=== PATIENT | female | born 1955 | race Caucasian/White ===

== ENCOUNTER → 2016-04-03 | Outpatient (CLI) | payer OTHER ==
--- NOTE | 2016-04-03 17:36 | MA ---
Screening Digital Mammogram With iCAD Analysis Clinical Indications: Routine screening. Technique: Standard cephalocaudal and mediolateral oblique projections were obtained. This examinatio n was processed by the iCAD computer aided detection system. Comparison: February 2015, January 2014, December 2011, March 2007. Breast density: Type B; Scattered fibroglandular densities. Findings: CAD was reviewed. No masses, suspicious calcifications or other signs of malignancy are id entified. There has been no significant change in the appearance of either breast. Impression: Negative mammogram. BI-RADS 1. Recommendation: Routine mammographic screening in one year. [facility] will send a result letter to the patient. Negative mammography should not preclude additional workup of a clinically suspicious finding. The patient's information is entered into a reminder system with a target due date for her next mammo gram.
== END ==
LOC: FIMAGING 15:44
DX: Z12.31 Encounter for screening mammogram for malignant neoplasm of breast (principal)
CPT/HCPCS: G0202

== ENCOUNTER 2016-06-27 17:18 | Emergency (ER) | payer OTHER ==
[2016-06-27] MEDS ORDERED: ONDANSETRON 4 MG/2 ML VIAL IVP ONE (17:49)
[2016-06-27] MEDS ORDERED: fentaNYL 100 MCG/2 ML INJ IVP ONE (17:49)
[2016-06-27] MEDS ORDERED: NS 1,000 ML IV ONE ×2 (17:49)
--- NOTE | 2016-06-27 17:51 | EDPHY ---
H & P Time Seen by Provider: 06/27/16 17:39 HPI/ROS: CHIEF COMPLAINT: Vomiting and abdominal pain HISTORY OF PRESENT ILLNESS: This 61-year-old woman started having symptoms today after lunch around 12:00 p.m.. She had some pizza which was left over from last night at her workplace. Of note she also had some symptoms similar to this on Saturday which resolved sooner and more spontaneously. Started having nausea followed by multiple episodes of vomiting and some diffuse lower abdominal cramping. No diarrhea. No chest pain. No fevers or chills and no urinary symptoms. Pain does not radiate. Symptoms are moderate to severe. REVIEW OF SYSTEMS: Eye: no change in vision ENT: no sore throat Cardiac: no chest pain or syncope Pulmonary: no cough or SOB Abdomen: HPI Musculoskeletal: no back pain Skin: no rash Neuro: no headache Constitutional: no fever : no urinary symptoms A comprehensive 10 point review of systems is otherwise negative aside from elements mentioned in the history of present illness. PAST MEDICAL HISTORY: Negative Social history: Does use alcohol and marijuana General Appearance: Alert and conversant, cooperative. Appears uncomfortable. Eyes: No scleral icterus. ENT, Mouth: Dry mucous membranes Respiratory: Normal respiratory effort, breath sounds equal, lungs are clear to auscultation. Cardiovascular: Regular rate and rhythm. Gastrointestinal: Bilateral lower abdominal tenderness without rebound or guarding. Neurological: Alert and oriented x3. Normally conversant. Face symmetric, normal movement and sensation in all extremities. Skin: Warm and dry, no rashes. Musculoskeletal: No peripheral edema and no joint swelling. Psychiatric: Not agitated. Emergency Department course/MDM: Initial treatment includes Zofran 4 mg IV and 2 L IV normal saline for nausea vomiting and dehydration. Labs to include LFTs and electrolytes. 183: Labs reviewed including negative LFTs and lipase. 1905: Feels much better, smiling, thirsty, taking oral fluids, abdomen soft and nontender. Smoking Status: Former smoker Constitutional: Initial Vital Signs Temperature (C) 36.3 C 06/27/16 17:23 Heart Rate 65 06/27/16 17:23 Respiratory Rate 17 06/27/16 17:23 Blood Pressure 136/76 H 06/27/16 17:23 O2 Sat (%) 99 06/27/16 17:23 O2 Delivery Mode Room Air Allergies/Adverse Reactions: No Known Allergies Allergy (Verified 06/27/16 17:23) Home Medications: Medication Instructions Recorded Atorvastatin Calcium [Lipitor 10 10 mg PO DAILY 09/25/11 mg (RX)] Levothyroxine [Synthroid 25 mcg 25 mcg PO DAILY06 09/25/11 (RX)] Medical Decision Making Differential Diagnosis: Differential diagnosis considered for nausea and vomiting including but not limited to gastroenteritis, gastritis, appendicitis, and medication side effect. - Data Points Laboratory Results: Laboratory Results 06/27/16 17:55 06/27/16 17:55 06/27/16 06/27/16 17:55 17:55 WBC 6.57 10^3/uL 10^3/uL (3.80-9.50) RBC 4.36 10^6/uL 10^6/uL (4.18-5.33) Hgb 14.3 g/dL g/dL (12.6-16.3) Hct 40.8 % % (38.0-47.0) MCV 93.6 fL fL (81.5-99.8) MCH 32.8 pg pg (27.9-34.1) MCHC 35.0 g/dL g/dL (32.4-36.7) RDW 11.7 % % (11.5-15.2) Plt Count 273 10^3/uL 10^3/uL (150-400) MPV 9.9 fL fL (8.7-11.7) Neut % (Auto) 77.3 % H % (39.3-74.2) Lymph % (Auto) 18.1 % % (15.0-45.0) [place] % (Auto) 3.5 % L % (4.5-13.0) Eos % (Auto) 0.2 % L % (0.6-7.6) Baso % (Auto) 0.6 % % (0.3-1.7) Nucleat RBC Rel Count 0.0 % % (0.0-0.2) Absolute Neuts (auto) 5.08 10^3/uL 10^3/uL (1.70-6.50) Absolute Lymphs (auto) 1.19 10^3/uL 10^3/uL (1.00-3.00) Absolute Monos (auto) 0.23 10^3/uL L 10^3/uL (0.30-0.80) Absolute Eos (auto) 0.01 10^3/uL L 10^3/uL (0.03-0.40) Absolute Basos (auto) 0.04 10^3/uL 10^3/uL (0.02-0.10) Absolute Nucleated RBC 0.00 10^3/uL 10^3/uL (0-0.01) Immature Gran % 0.3 % % (0.0-1.1) Immature Gran # 0.02 10^3/uL 10^3/uL (0.00-0.10) Sodium 139 mEq/L mEq/L (134-144) Potassium 3.2 mEq/L L mEq/L (3.5-5.2) Chloride 101 mEq/L mEq/L (97-110) Carbon Dioxide 25 mEq/l mEq/l (22-31) Anion Gap 13 mEq/L mEq/L (8-16) BUN 22 mg/dL mg/dL (7-23) Creatinine 0.6 mg/dL mg/dL (0.6-1.0) Estimated GFR > 60 Glucose 114 mg/dL H mg/dL (70-100) Calcium 10.0 mg/dL mg/dL (8.5-10.4) Total Bilirubin 1.0 mg/dL mg/dL (0.1-1.4) Conjugated Bilirubin 0.3 mg/dL mg/dL (0.0-0.5) Unconjugated Bilirubin 0.7 mg/dL mg/dL (0.0-1.1) AST 29 IU/L IU/L (14-46) ALT 43 IU/L IU/L (9-52) Alkaline Phosphatase 89 IU/L IU/L (38-126) Total Protein 7.8 g/dL g/dL (6.3-8.2) Albumin 4.6 g/dL g/dL (3.5-5.0) Lipase 59.0 IU/L IU/L (23-300) Medications Given: Discontinued Medications Fentanyl (Sublimaze) 100 mcg IVP EDNOW ONE Stop: 06/27/16 17:50 Last Admin: 06/27/16 18:08 Dose: 100 mcg Sodium Chloride (Ns) 1,000 mls @ 0 mls/hr IV ONCE ONE PRN Reason: Wide Open Stop: 06/27/16 17:50 Last Admin: 06/27/16 18:08 Dose: 1,000 mls Sodium Chloride (Ns) 1,000 mls @ 0 mls/hr IV ONCE ONE PRN Reason: Wide Open Stop: 06/27/16 17:50 Last Admin: 06/27/16 18:08 Dose: 1,000 mls Ondansetron HCl (Zofran) 4 mg IVP EDNOW ONE Stop: 06/27/16 17:50 Last Admin: 06/27/16 18:08 Dose: 4 mg Departure - Departure Disposition: [facility] Clinical Impression: Nausea & vomiting Qualifiers: Vomiting type: unspecified Vomiting Intractability: non-intractable Qualified Code(s): R11.2 - Nausea with vomiting, unspecified Condition: Good Instructions: Acute Nausea and Vomiting (ED) Referrals: Malaika Chandler MD [Primary Care Provider] - As per Instructions
[2016-06-27 18:09] LABS: % IMMATURE GRANULYOCYTES 0.3 % (0.0-1.1); ABSOLUTE IMMATURE GRANULOCYTES 0.02 10^3/uL (0.00-0.10); ADD DIFF? NO; ADD MORPH? NO; ADD SCAN? NO; ATYPICAL LYMPHOCYTE FLAG 0 (0-99); FRAGMENT RBC FLAG 0 (0-99); HEMATOCRIT 40.8 % (38.0-47.0); HEMOGLOBIN 14.3 g/dL (12.6-16.3); LEFT SHIFT FLG 0 (0-99); LIPEMIA HEMOLYSIS FLAG 90 (0-99); MEAN CELL HEMOGLOBIN 32.8 pg (27.9-34.1); MEAN CELL VOLUME 93.6 fL (81.5-99.8); MEAN PLATELET VOLUME 9.9 fL (8.7-11.7); PLATELET CLUMPS FLAG 0 (0-99); PLATELET COUNT 273 10^3/uL (150-400); RED BLOOD CELL COUNT 4.36 10^6/uL (4.18-5.33); RED CELL DISTRIBUTION WIDTH 11.7 % (11.5-15.2)
[2016-06-27 18:26] VITALS: RESP 16
[2016-06-27 18:33] LABS: ALANINE AMINOTRANSFERASE 43 IU/L (9-52); ALBUMIN 4.6 g/dL (3.5-5.0); ALKALINE PHOSPHATASE 89 IU/L (38-126); ANION GAP 13 mEq/L (8-16); ASPARTATE AMINOTRANSFERASE 29 IU/L (14-46); BILIRUBIN-CONJUGATED 0.3 mg/dL (0.0-0.5); BILIRUBIN-UNCONJUGATED 0.7 mg/dL (0.0-1.1); CARBON DIOXIDE 25 mEq/l (22-31); CHLORIDE 101 mEq/L (97-110); CREATININE 0.6 mg/dL (0.6-1.0); GLOMERULAR FILTRATION RATE > 60; GLUCOSE 114 mg/dL (70-100); POTASSIUM 3.2 mEq/L (3.5-5.2); SODIUM 139 mEq/L (134-144); TOTAL PROTEIN 7.8 g/dL (6.3-8.2)
[2016-06-27 19:14] VITALS: BP 112/59; PULSE 69; TEMP 97.5; O2SAT 95
== END 2016-06-27 19:14 | disposition home or self-care (01) ==
DX: R11.2 Nausea with vomiting, unspecified (principal); R10.30 Lower abdominal pain, unspecified; E86.0 Dehydration
CPT/HCPCS: 96374; J2405; J3010

== ENCOUNTER 2016-09-03 10:06 | Day surgery (SDC) | payer OTHER ==
[2016-09-03] MEDS ORDERED: LR 1,000 ML IV ONE (10:30)
[2016-09-03 10:40] VITALS: PULSE 74
--- NOTE | 2016-09-03 11:37 | PDANEPAE ---
ANE History of Present Illness colonoscopy ANE Past Medical History - Cardiovascular History Hx Hypertension: No Hx Arrhythmias: No Hx Chest Pain: No Hx Coronary Artery / Peripheral Vascular Disease: No Hx CHF / Valvular Disease: No Hx Palpitations: No - Pulmonary History Hx COPD: No Hx Asthma/Reactive Airway Disease: No Hx Recent Upper Respiratory Infection: No Hx Oxygen in Use at Home: No Hx Sleep Apnea: No Sleep Apnea Screening Result - Last Documented: Negative - Neurologic History Hx Cerebrovascular Accident: No Hx Seizures: No Hx Dementia: No - Endocrine History Hx Diabetes: No Endocrine History Comment: HYPOTHYROID - Renal History Hx Renal Disorders: No - Liver History Hx Hepatic Disorders: No - Neurological & Psychiatric Hx Hx Neurological and Psychiatric Disorders: No - Cancer History Hx Cancer: No - Congenital Disorder History Hx Congenital Disorders: No - GI History Hx Gastrointestinal Disorders: Yes Gastrointestinal History Comment: HX OF COLON POLYPS - Other Health History Other Health History: on medical marijuana for eye condtition - Chronic Pain History Chronic Pain: No - Surgical History Prior Surgeries: COLONOSCOPY REMVL POLYPS. ECTOPIC PREG. RT FOOT ANE Review of Systems - Exercise capacity METS (RN): 4 METS ANE Patient History - Allergies Allergies/Adverse Reactions: No Known Allergies Allergy (Verified 06/27/16 17:23) - Home Medications Home Medications: Atorvastatin Calcium [Lipitor 10 mg (RX)] 10 mg PO DAILY 09/25/11 [Last Taken ] Levothyroxine [Synthroid 25 mcg (RX)] 25 mcg PO DAILY06 09/25/11 [Last Taken 24/02] - NPO status NPO Since - Liquids (Date): 09/02/16 NPO Since - Liquids (Time): 23:00 NPO Since - Solids (Date): 09/02/16 NPO Since - Solids (Time): 07:30 - Anes Hx Anes Hx: no prior problems - Smoking Hx Smoking Status: Former smoker ANE Labs/Vital Signs - Vital Signs Blood Pressure: 95/65 Heart Rate: 74 Respiratory Rate: 13 O2 Sat (%): 100 Height: 157.48 cm Weight: 49.895 kg ANE Physical Exam - Airway Mallampati Score: Class 2 Mouth exam: normal dental/mouth exam - Pulmonary Pulmonary: no respiratory distress - Cardiovascular Cardiovascular: regular rate and rhythym - ASA Status ASA Status: II ANE Anesthesia Plan Anesthesia Plan: GA with mask, MAC
[2016-09-03] MEDS ORDERED: PROPOFOL/EMULSION 500 MG/50 ML BOTTLE IV ONE (11:41)
[2016-09-03] MEDS ORDERED: MIDAZOLAM 2 MG/2 ML VIAL ONE (11:41)
[2016-09-03] MEDS ORDERED: LIDOCAINE 2% 5 ML SDV ONE (11:41)
[2016-09-03] MEDS ORDERED: fentaNYL 100 MCG/2 ML INJ ONE (12:13)
--- NOTE | 2016-09-03 12:49 | PDGENHP ---
History & Physical Chief Complaint: transverse colon polyp History of Present Illness: 61 year old female withx hx of complex tc polyp presents for surveillance colonoscopy. Pertinent Past, Social, Family History: PMHx: hypothyroid. SoHx: No cig. FaMHx : + polyps Relevant Physical Exam: HEENT: Anicteric. Cv: RRR +s1s2. lungs: CTAB no w/r/ r. Abd: soft, nt, nd, +BS Cardiorespiratory Assessment: ASA 2
[2016-09-03] MEDS ORDERED: ONDANSETRON 4 MG/2 ML VIAL IVP PRN (13:02)
[2016-09-03] MEDS ORDERED: fentaNYL 100 MCG/2 ML INJ IVP PRN (13:02)
[2016-09-03] MEDS ORDERED: LR 500 ML IV PRN (13:02)
[2016-09-03] MEDS ORDERED: HYDROmorphONE/DILAUDID 1 MG/ML SYR IVP PRN (13:02)
[2016-09-03] MEDS ORDERED: MEPERIDINE 25 MG/ML SYR IVP PRN (13:02)
[2016-09-03] MEDS ORDERED: NALOXONE HCL 0.4 MG/ML INJ IVP PRN (13:02)
--- NOTE | 2016-09-03 13:10 | POSTOPPROG ---
Post Op Note Date of Operation: 09/03/16 Surgeon: Flako Garnica Anesthesia: IV Sedation Pre-op Diagnosis: colonic polyp Post-op Diagnosis: tranverse colon polyp Indication: polyp Procedure: colonoscopy with snare Findings: + t.c polpy Inf/Abcess present in the surg proc area at time of surgery?: No
--- NOTE | 2016-09-03 13:13 | POSTANESTH ---
Post Anesthetic Evaluation Cardiovascular Status: Normal, Stable Respiratory Status: Normal, Stable Level of Consciousness/Mental Status: Can Participate in Eval Pain Control: Adequate, Prn Tx Ordered Nausea/Vomiting Control: Adequate, Prn Tx Ordered Complications Possibly Related to Anesthesia: None Noted
[2016-09-03 13:22] VITALS: TEMP 98.1
[2016-09-03 14:25] VITALS: BP 97/54; RESP 13; O2SAT 94
--- NOTE | 2016-09-03 16:50 | GPN ---
[f rep st] PROCEDURE NOTE DATE OF PROCEDURE: 09/03/2016 PROCEDURE: Colonoscopy with snare polypectomy, APC, placement of a clip. INDICATION: The patient is a 61-year-old female who presents for surveillance of a complex carpet p olyp in the transverse colon. She had an endoscopic mucosal resection performed approximately a yea r ago and presents for surveillance colonoscopy. CONSENT: Risks, benefits, and alternatives of the procedure were discussed in great detail with the patient. Risks of infection, bleeding, perforation, sedation were discussed. All questions answer ed. Informed consent obtained. MEDICATIONS: Propofol. Please see anesthesiology for details. ESTIMATED BLOOD LOSS: Insignificant. COLONOSCOPIC EVALUATION: On rectal exam, no palpable masses felt. The scope was introduced in the rectum and advanced to the cecum, where the ileocecal valve and appendiceal orifice were seen. The quality of prep was fair. In the transverse colon, a tattoo mónica was seen, and just proximal to this area 2 polypoid lesions w ere seen of approximately 4 and 5 mm each. The area in between these lesions had normal intervening mucosa. Using a hot snare polypectomy, these lesions were both resected. APC was applied around the edges a nd 1 Resolution Clip was placed. IMPRESSION: Complex polyp in the ascending colon, status post removal. RECOMMENDATION: Follow up on biopsy results. Repeat colonoscopy in 1 year. /[id number]/MODL
== END 2016-09-03 14:30 | disposition home or self-care (01) ==
LOC: FSGY 10:06
PROVIDERS: ATTEND Internal Medicine Gastroenterology
PROC: 0DBE8ZX Excision of Large Intestine, Via Natural or Artificial Opening Endoscopic, Diagnostic (ICD-10-PCS; principal; 2016-09-03 11:45)
DX: E03.9 Hypothyroidism, unspecified (principal); Z87.891 Personal history of nicotine dependence
CPT/HCPCS: J2250; J2704; J3010

== ENCOUNTER 2017-04-07 11:20 | Emergency (ER) | payer OTHER ==
[2017-04-07 12:00] VITALS: BP 121/91; PULSE 90; RESP 16; TEMP 98.6; O2SAT 97
--- NOTE | 2017-04-07 15:03 | EDPHY ---
H & P HPI/ROS: Chief complaint: Splinter in right leg History of present illness: This is a 61-year-old female who presents to the emergency department concerned she still has a splinter in her right leg. She states last summer she struck her leg against a stick and a stick got stuck in her leg. She removed it. However she is not sure if she fully removed the stick. She started to notice a wound to her right leg in the same region over the last few days and is concerned there was a retained stick that is coming out of her leg. Smoking Status: Former smoker Physical Exam: General: Alert, nontoxic Skin: There is an abrasion to the the lateral aspect of the right lower leg. No pustular discharge. No erythema or edema. Musculoskeletal: Patient is moving the right lower extremity all joints all billings without difficulty Vascular: DP and PT pulses 2+. Neurologic: Sensation intact in the right leg. Constitutional: Initial Vital Signs Temperature (C) 37 C 04/07/17 11:57 Heart Rate 90 04/07/17 11:57 Respiratory Rate 16 04/07/17 11:57 Blood Pressure 121/91 H 04/07/17 11:57 O2 Sat (%) 97 04/07/17 11:57 O2 Delivery Mode Room Air Allergies/Adverse Reactions: No Known Allergies Allergy (Verified 04/07/17 11:57) Home Medications: Medication Instructions Recorded Atorvastatin Calcium [Lipitor 10 10 mg PO DAILY 09/25/11 mg (*)] Levothyroxine [Synthroid 25 mcg 25 mcg PO DAILY06 09/25/11 (*)] MDM/Departure - MDM Imaging Results: Imaging Impressions Extremity Ultrasound 04/07/17 14:04 Impression: There is no sonographic abnormality observed. Findings were discussed with Scout Palacios PA-C at 14:59, on 04/07/2017. Imaging: Discussed imaging studies w/ cartoonist special effects Radiologist ED Course/Re-evaluation: Patient seen under the supervision of my secondary supervising physician Dr. Curt Yung. Patient presents to the emergency department for a right leg wound. She is concerned there is a retained foreign body. Ultrasound is obtained and negative. No evidence of infection or other significant findings on physical exam. She is discharged home. Home care is discussed. She is to follow up with her primary care doctor for recheck. Return precautions are given. The patient voiced understanding and agreement with plan. Differential Diagnosis: Included but not limited to acute soft tissue injury, retained foreign body, skin infection - Depart Disposition: Home, Routine, Self-Care Clinical Impression: Leg wound, right Qualifiers: Encounter type: initial encounter Qualified Code(s): S81.801A - Unspecified open wound, right lower leg, initial encounter Condition: Good Instructions: Chronic Wounds (ED) Additional Instructions: Follow-up with a primary care doctor for continued evaluation and care If symptoms worsen or new symptoms develop return to the emergency room for recheck Referrals: Malaika Chandler MD [Primary Care Provider] - As per Instructions
== END 2017-04-07 15:10 | disposition home or self-care (01) ==
DX: S81.801A Unspecified open wound, right lower leg, initial encounter (principal); Z87.891 Personal history of nicotine dependence; W45.8XXA Other foreign body or object entering through skin, initial encounter